=== PATIENT | male | born 1950 | race Caucasian/White ===

== ENCOUNTER 2024-01-06 15:07 | Emergency (ER) | payer MEDICARE, OTHER ==
[~2024-01-06] VITALS: Ht 170.2 cm; Wt 64.0 kg
[2024-01-06] MEDS ORDERED: TDAP [DIPH/PERTUSSIS/TET] 0.5 ML VIAL IM ONE (15:30)
[2024-01-06] MEDS: TDAP [DIPH/PERTUSSIS/TET] 0.5 ML VIAL IM ONE (15:31)
[2024-01-06] MEDS ORDERED: IBUP-1953 PO (16:26)
[2024-01-06] MEDS ORDERED: ACETAMINOPHEN ES 500 MG TABLET ONE (17:03)
[2024-01-06] MEDS: ACETAMINOPHEN ES 500 MG TABLET PO ONE (17:07)
[2024-01-06 17:19] VITALS: BP 128/77; TEMP 98.4; O2SAT 100
== END 2024-01-06 17:20 | disposition home or self-care (01) ==
LOC: ER 15:20
DX: S53.401A Unspecified sprain of right elbow, initial encounter (principal); S43.401A Unspecified sprain of right shoulder joint, initial encounter; S80.01XA Contusion of right knee, initial encounter; S00.83XA Contusion of other part of head, initial encounter; S00.81XA Abrasion of other part of head, initial encounter; F31.9 Bipolar disorder, unspecified; E03.9 Hypothyroidism, unspecified; X50.1XXA Overexertion from prolonged static or awkward postures, initial encounter; Y93.89 Activity, other specified; Y92.89 Other specified places as the place of occurrence of the external cause; Y99.8 Other external cause status
CPT/HCPCS: 70450-TC; 70486-TC; 73030-TC; 73080-TC; 90715

== ENCOUNTER 2024-07-10 09:53 | Inpatient (IN) | payer OTHER ==
[~2024-07-10] VITALS: Ht 165.1 cm; Wt 68.5 kg
[~2024-07-10 09:53] MED LIST: IBUP-1953 PO
[2024-07-10 10:24] LABS: BASOPHILS % (AUTO) 0.3 % (0.0-2.0); HEMATOCRIT 41 % (39-51); HEMOGLOBIN 13.5 g/dL (13.5-17.5); LYMPHOCYTES # (AUTO) 0.3 K/uL (0.8-4.8); LYMPHOCYTES % (AUTO) 2.5 % (20.0-44.0); MEAN CORPUSCULAR HEMOGLOBIN 30 PG (26.0-33.0); MEAN CORPUSCULAR HGB CONC 33 g/dl (31.0-36.0); MEAN CORPUSCULAR VOLUME 90 fL (80-96); NEUTROPHILS # (AUTO) 10.2 K/uL (1.8-8.9); NEUTROPHILS % (AUTO) 88.2 % (43.0-81.0); PLATELET COUNT (AUTO) 208 K/uL (150-450); RED BLOOD CELL COUNT(AUTO) 4.57 MIL/uL (4.5-6.0); RED CELL DISTRIBUTION WIDTH 14.2 % (11.5-15.0); WHITE BLOOD COUNT (AUTO) 11.5 K/uL (4.3-11.0)
[2024-07-10 10:38] LABS: INR 1.09 (0.91-1.10); PARTIAL THROMBOPLASTIN TIME 29.6 SEC (24.3-34.3); PROTHROMBIN TIME 11.5 SECS (9.2-11.1)
[2024-07-10 10:55] LABS: LYMPHOCYTES % (MANUAL) 5 % (16-48); MONOCYTES % (MANUAL) 9 % (0-11.0); NEUTROPHILS % (MANUAL) 86 (42-76); PLATELET ESTIMATE ADEQUATE
[2024-07-10 11:00] LABS: CALCIUM, SERUM 9.4 mg/dL (8.5-10.1); CREATININE 1.4 mg/dL (0.6-1.3); POTASSIUM 4.2 mmol/L (3.5-5.1)
[2024-07-10] MEDS ORDERED: TAMS-12 PO (11:05)
[2024-07-10] MEDS ORDERED: HONE44PA TP (11:05)
[2024-07-10] MEDS ORDERED: TRAZ150T75 PO (11:05)
[2024-07-10] MEDS ORDERED: ATOR10TA PO (11:05)
[2024-07-10] MEDS ORDERED: FLUP5TAB14 PO ×2 (11:05)
[2024-07-10] MEDS ORDERED: LOPE2TAB25 PO (11:05)
[2024-07-10] MEDS ORDERED: FINA5TAB11 PO (11:05)
[2024-07-10] MEDS ORDERED: LAMO100T17 PO (11:05)
[2024-07-10] MEDS ORDERED: HALO15CR2 TP (11:05)
[2024-07-10] MEDS ORDERED: LOSA50TA39 PO (11:05)
[2024-07-10] MEDS ORDERED: LAMO150T6 PO (11:05)
[2024-07-10] MEDS ORDERED: SERT100T PO (11:05)
[2024-07-10] MEDS ORDERED: ACET325T53 PO (11:05)
[2024-07-10] MEDS ORDERED: MUPI15CR TP (11:05)
[2024-07-10] MEDS ORDERED: LEVO137T24 PO (11:05)
[2024-07-10] MEDS ORDERED: MAGN400O6 PO (11:05)
[2024-07-10] MEDS ORDERED: MAG-135 PO (11:05)
[2024-07-10] MEDS ORDERED: DOCU100T2 PO (11:05)
[2024-07-10] MEDS ORDERED: LORA-258 PO (11:05)
[2024-07-10] MEDS ORDERED: NALT50TA PO (11:05)
[2024-07-10] MEDS ORDERED: NYST15PO3 TP (11:05)
[2024-07-10] MEDS ORDERED: MIRT-91 PO (11:05)
[2024-07-10] MEDS ORDERED: BISA10SU11 RC (11:05)
[2024-07-10] MEDS ORDERED: MORPHINE SULFATE INJ 4 MG/ML DISP.SYRIN ONE (12:54)
[2024-07-10] MEDS ORDERED: ONDANSETRON HCL/PF 4 MG/2 ML VIAL ONE (12:54)
[2024-07-10] MEDS: ONDANSETRON HCL/PF 4 MG/2 ML VIAL IV ONE (13:00)
[2024-07-10] MEDS: MORPHINE SULFATE INJ 2 MG/ML DISP.SYRIN IV ONE (13:00)
[2024-07-10] MEDS ORDERED: BISACODYL SUPP (10 MG) 10 MG/SUPP.RECT SUPP.RECT RC PRN (13:30)
[2024-07-10] MEDS ORDERED: LamoTRIgine 100 MG TABLET PO SCH (13:30)
[2024-07-10] MEDS: LEVOTHYROXINE SODIUM 137 MCG TABLET PO SCH (13:30)
[2024-07-10] MEDS ORDERED: ACETAMINOPHEN 325 MG TABLET PO PRN ×2 (13:30→15:30)
[2024-07-10] MEDS ORDERED: ONDANSETRON HCL/PF 4 MG/2 ML VIAL IVP PRN (15:30)
[2024-07-10] MEDS ORDERED: MAGNESIUM HYDROXIDE 30 ML UDC PO PRN (15:30)
[2024-07-10] MEDS: MORPHINE SULFATE INJ 4 MG/ML DISP.SYRIN IV PRN (16:11)
[2024-07-10] MEDS: LamoTRIgine 100 MG TABLET PO SCH (17:00)
[2024-07-10 18:00] VITALS: BP 135/87; TEMP 98.6; O2SAT 95
[2024-07-10] MEDS: LamoTRIgine 25 MG TABLET PO SCH (18:07)
[2024-07-10] MEDS: LOSARTAN POTASSIUM 50 MG TABLET PO SCH (18:07)
[2024-07-10 20:00] VITALS: BP 118/83; TEMP 98.1; O2SAT 92
[2024-07-10] MEDS: TRAZODONE 50 MG TABLET PO SCH (21:59)
[2024-07-10] MEDS: FINASTERIDE (5 MG) 5 MG TABLET PO SCH (21:59)
[2024-07-10] MEDS: ATORVASTATIN 10 MG TABLET PO SCH (22:00)
[2024-07-10] MEDS: TAMSULOSIN 0.4 MG CAP.SR.24H PO SCH (22:00)
[2024-07-10] MEDS: FLUPHENAZINE HCL 10 MG TABLET PO SCH (22:01)
[2024-07-10] MEDS: HYDROCODONE/APAP 10/325MG TABLET PO PRN (22:20)
[2024-07-10] MEDS: IV 1/2NS 1000 ML 1,000 ML IV PRN (22:35)
[2024-07-11] VITALS (8 sets, daily range): BP systolic 99–115; BP diastolic 65–71; TEMP 97–98.1; O2SAT 90–96
[2024-07-11 07:01] LABS: ALBUMIN 3.4 g/dL (3.4-5.0); BILIRUBIN,TOTAL 0.3 mg/dL (0.2-1.0); CALCIUM, SERUM 9.8 mg/dL (8.5-10.1); CREATININE 1.3 mg/dL (0.6-1.3); MAGNESIUM 2.3 mg/dL (1.8-2.4); PHOSPHORUS 3.1 mg/dL (2.5-4.9); POTASSIUM 4.3 mmol/L (3.5-5.1); TOTAL PROTEIN, SERUM 6.6 g/dL (6.4-8.2)
[2024-07-11 07:11] LABS: THYROID STIMULATING HORMONE 6.94 uIU/mL (0.358-3.74)
[2024-07-11 07:38] LABS: BASOPHILS % (AUTO) 0.1 % (0.0-2.0); EOSINOPHILS % (AUTO) 0.1 % (0.0-6.0); HEMATOCRIT 39 % (39-51); HEMOGLOBIN 13.4 g/dL (13.5-17.5); LYMPHOCYTES # (AUTO) 0.8 K/uL (0.8-4.8); LYMPHOCYTES % (AUTO) 9.6 % (20.0-44.0); MEAN CORPUSCULAR HEMOGLOBIN 30 PG (26.0-33.0); MEAN CORPUSCULAR HGB CONC 34 g/dl (31.0-36.0); MEAN CORPUSCULAR VOLUME 89 fL (80-96); MONOCYTES # (AUTO) 1.2 K/uL (0.1-1.30); MONOCYTES % (AUTO) 14.5 % (2.0-12.0); NEUTROPHILS # (AUTO) 6.1 K/uL (1.8-8.9); NEUTROPHILS % (AUTO) 75.7 % (43.0-81.0); PLATELET COUNT (AUTO) 191 K/uL (150-450); RED BLOOD CELL COUNT(AUTO) 4.43 MIL/uL (4.5-6.0); RED CELL DISTRIBUTION WIDTH 14.1 % (11.5-15.0)
[2024-07-11] MEDS: SERTRALINE HCL 50 MG TABLET PO SCH (09:00)
[2024-07-11] MEDS: FLUPHENAZINE HCL 10 MG TABLET PO SCH (09:00)
[2024-07-11] MEDS ORDERED: ANESTHESIA TRAY IN PYXIS 1 EA TRAY MC ONE (12:00)
[2024-07-11] MEDS ORDERED: BUPIVACAINE 0.25% 75 MG/30 ML VIAL ONE (12:00)
[2024-07-11] MEDS ORDERED: FENTANYL PF 250MCG/5ML AMPUL ONE (12:54)
[2024-07-11] MEDS ORDERED: ROCURONIUM BROMIDE 50 MG/5 ML ONE (12:56)
[2024-07-11] MEDS ORDERED: SEVOFLURANE 250 ML BOTTLE IH ONE (13:17)
[2024-07-11] MEDS ORDERED: TRANEXAMIC ACID 1,000 MG/10 ML VIAL ONE (13:29)
[2024-07-11] MEDS: CEFAZOLIN 2 GM in IV D5W 100 ML IV SCH (20:44)
[2024-07-12 06:31] LABS: BASOPHILS % (AUTO) 0.3 % (0.0-2.0); HEMATOCRIT 37 % (39-51); HEMOGLOBIN 12.4 g/dL (13.5-17.5); LYMPHOCYTES # (AUTO) 0.5 K/uL (0.8-4.8); LYMPHOCYTES % (AUTO) 5.8 % (20.0-44.0); MEAN CORPUSCULAR HEMOGLOBIN 30 PG (26.0-33.0); MEAN CORPUSCULAR HGB CONC 34 g/dl (31.0-36.0); MEAN CORPUSCULAR VOLUME 89 fL (80-96); MONOCYTES # (AUTO) 0.7 K/uL (0.1-1.30); MONOCYTES % (AUTO) 7.7 % (2.0-12.0); NEUTROPHILS # (AUTO) 7.4 K/uL (1.8-8.9); NEUTROPHILS % (AUTO) 86.2 % (43.0-81.0); PLATELET COUNT (AUTO) 196 K/uL (150-450); RED BLOOD CELL COUNT(AUTO) 4.11 MIL/uL (4.5-6.0); RED CELL DISTRIBUTION WIDTH 14.3 % (11.5-15.0); WHITE BLOOD COUNT (AUTO) 8.5 K/uL (4.3-11.0)
[2024-07-12 06:44] LABS: BILIRUBIN,TOTAL 0.3 mg/dL (0.2-1.0); CALCIUM, SERUM 9.1 mg/dL (8.5-10.1); CREATININE 1.5 mg/dL (0.6-1.3); MAGNESIUM 2.1 mg/dL (1.8-2.4); PHOSPHORUS 3.2 mg/dL (2.5-4.9); POTASSIUM 4.6 mmol/L (3.5-5.1); TOTAL PROTEIN, SERUM 6.1 g/dL (6.4-8.2)
[2024-07-12 06:57] LABS: CREATININE, URINE 88.8 MG/DL (30.0-125.0); URINE TOTAL PROTEIN 60.9 mg/dL (0-11.9)
[2024-07-12 07:01] LABS: APPEARANCE,URINE SLIGHTLY CLOUDY (CLEAR); BILIRUBIN,URINE NEGATIVE (NEGATIVE); BLOOD, URINE 1+ Ery/uL (NEGATIVE); COLOR,URINE YELLOW (YELLOW); KETONES,URINE NEGATIVE (NEGATIVE); LEUKOCYTE ESTERASE ,URINE 3+ (NEGATIVE); NITRITE, URINE POSITIVE (NEGATIVE); PROTEIN,URINE TRACE mg/dl (NEGATIVE); UGLUCOSE NEGATIVE (NEGATIVE); UROBILINOGEN,URINE 0.2 EU/dL (0.2)
[2024-07-12 08:00] VITALS: BP 110/74; TEMP 99.1; O2SAT 93
[2024-07-12 08:11] LABS: ADD URINE CULTURE YES; BACTERIA,URINE Few /HPF (None Seen); EOSINOPHIL,URINE None Seen; SQUAMOUS EPITHELIAL CELL,UR Few /HPF (None Seen); WBC,URINE 51-80 /HPF (0-3)
[2024-07-12] MEDS: CEFTRIAXONE 1 G in IV D5W 50 ML IV SCH (15:41)
[2024-07-12] MEDS: ENOXAPARIN SODIUM 40 MG/0.4 ML DISP.SYRIN SQ SCH (15:42)
[2024-07-12 16:00] VITALS: BP 110/66; TEMP 97.8; O2SAT 94
[2024-07-12 20:00] VITALS: BP 122/74; TEMP 98.2; O2SAT 94
[2024-07-13 08:00] VITALS: BP 120/76; TEMP 98.4; O2SAT 95
[2024-07-13 16:00] VITALS: BP 125/76; TEMP 97.3; O2SAT 97
[2024-07-13 20:00] VITALS: BP 114/61; TEMP 98.6; O2SAT 93
[2024-07-14 08:00] VITALS: BP 123/79; TEMP 97.9; O2SAT 94
[2024-07-14 11:33] LABS: BASOPHILS % (AUTO) 0.3 % (0.0-2.0); EOSINOPHILS % (AUTO) 0.3 % (0.0-6.0); HEMATOCRIT 31 % (39-51); HEMOGLOBIN 10.5 g/dL (13.5-17.5); LYMPHOCYTES # (AUTO) 0.8 K/uL (0.8-4.8); LYMPHOCYTES % (AUTO) 9.5 % (20.0-44.0); MEAN CORPUSCULAR HEMOGLOBIN 30 PG (26.0-33.0); MEAN CORPUSCULAR HGB CONC 34 g/dl (31.0-36.0); MEAN CORPUSCULAR VOLUME 89 fL (80-96); MONOCYTES # (AUTO) 1.1 K/uL (0.1-1.30); NEUTROPHILS # (AUTO) 6.4 K/uL (1.8-8.9); NEUTROPHILS % (AUTO) 76.9 % (43.0-81.0); PLATELET COUNT (AUTO) 238 K/uL (150-450); RED CELL DISTRIBUTION WIDTH 14.2 % (11.5-15.0); WHITE BLOOD COUNT (AUTO) 8.3 K/uL (4.3-11.0)
[2024-07-14 11:50] LABS: CALCIUM, SERUM 9.1 mg/dL (8.5-10.1); CREATININE 1.1 mg/dL (0.6-1.3); MAGNESIUM 2.1 mg/dL (1.8-2.4); PHOSPHORUS 2.9 mg/dL (2.5-4.9); POTASSIUM 4.2 mmol/L (3.5-5.1)
[2024-07-14 16:00] VITALS: BP 114/75; TEMP 97.9; O2SAT 97
[2024-07-14 20:00] VITALS: BP 116/66; TEMP 97.7; O2SAT 95
[2024-07-15 00:07] LABS: PTH, INTACT 78 pg/mL (15-65)
[2024-07-15 05:07] LABS: *SPE ALBUMIN 2.7 g/dL (2.9-4.4); *SPE ALPHA-1-GLOBULIN 0.3 g/dL (0.0-0.4); *SPE ALPHA-2-GLOBULIN 0.8 g/dL (0.4-1.0); *SPE BETA GLOBULIN 0.9 g/dL (0.7-1.3); *SPE GLOBULIN, TOTAL 2.6 g/dL (2.2-3.9); *SPE M-SPIKE Not Observed g/dL (Not Observed); *SPE PROTEIN TOTAL 5.3 g/dL (6.0-8.5); *SPEGAMMA GLOBULIN 0.7 g/dL (0.4-1.8)
[2024-07-15 07:00] VITALS: BP 119/66; TEMP 98.1; O2SAT 100
[2024-07-15 08:09] LABS: BASOPHILS % (AUTO) 0.3 % (0.0-2.0); EOSINOPHILS # (AUTO) 0.1 K/uL (0.0-0.7); HEMATOCRIT 31 % (39-51); HEMOGLOBIN 10.4 g/dL (13.5-17.5); LYMPHOCYTES # (AUTO) 0.9 K/uL (0.8-4.8); MEAN CORPUSCULAR HEMOGLOBIN 30 PG (26.0-33.0); MEAN CORPUSCULAR HGB CONC 34 g/dl (31.0-36.0); MEAN CORPUSCULAR VOLUME 89 fL (80-96); MONOCYTES % (AUTO) 11.2 % (2.0-12.0); NEUTROPHILS # (AUTO) 6.6 K/uL (1.8-8.9); NEUTROPHILS % (AUTO) 77.5 % (43.0-81.0); PLATELET COUNT (AUTO) 272 K/uL (150-450); RED BLOOD CELL COUNT(AUTO) 3.44 MIL/uL (4.5-6.0); RED CELL DISTRIBUTION WIDTH 14.4 % (11.5-15.0); WHITE BLOOD COUNT (AUTO) 8.5 K/uL (4.3-11.0)
[2024-07-15 08:59] LABS: LDL 57 mg/dL (0-99)
[2024-07-15 09:00] VITALS: BP 103/69
[2024-07-15 09:00] LABS: CHOLESTEROL 119 mg/dL (<200); HDL CHOLESTEROL 46 mg/dL (40-60); TRIGLYCERIDES 69 mg/dL (30-150)
[2024-07-15 09:01] LABS: CALCIUM, SERUM 9.4 mg/dL (8.5-10.1); CREATININE 1.1 mg/dL (0.6-1.3); MAGNESIUM 2.2 mg/dL (1.8-2.4); PHOSPHORUS 2.7 mg/dL (2.5-4.9); POTASSIUM 4.3 mmol/L (3.5-5.1)
[2024-07-15] MEDS ORDERED: CEFT1FRO2 IV (13:40)
[2024-07-15] MEDS ORDERED: ENOX40DI SQ (13:40)
[2024-07-15] MEDS ORDERED: HYDR-3980 PO (13:40)
== END 2024-07-15 15:50 | DRG 481 ==
LOC: ER 09:55 → MED 14:19
PROVIDERS: ADMIT Nurse Practitioner Family; ATTEND Student in an Organized Health Care Education/Training Program
PROC: 0QS706Z Reposition Left Upper Femur with Intramedullary Internal Fixation Device, Open Approach (ICD-10-PCS; principal; 2024-07-11)
DX: S72.142A Displaced intertrochanteric fracture of left femur, initial encounter for closed fracture (principal); N17.9 Acute kidney failure, unspecified; N39.0 Urinary tract infection, site not specified; N18.9 Chronic kidney disease, unspecified; I12.9 Hypertensive chronic kidney disease with stage 1 through stage 4 chronic kidney disease, or unspecified chronic kidney disease; E03.9 Hypothyroidism, unspecified; N40.0 Benign prostatic hyperplasia without lower urinary tract symptoms; K59.00 Constipation, unspecified; K40.90 Unilateral inguinal hernia, without obstruction or gangrene, not specified as recurrent; W01.0XXA Fall on same level from slipping, tripping and stumbling without subsequent striking against object, initial encounter; F31.9 Bipolar disorder, unspecified; M89.8X9 Other specified disorders of bone, unspecified site; Z79.890 Hormone replacement therapy; Z79.899 Other long term (current) drug therapy; Z82.49 Family history of ischemic heart disease and other diseases of the circulatory system; Z87.891 Personal history of nicotine dependence; D64.9 Anemia, unspecified; R73.9 Hyperglycemia, unspecified; B96.89 Other specified bacterial agents as the cause of diseases classified elsewhere; Y92.092 Bedroom in other non-institutional residence as the place of occurrence of the external cause
CPT/HCPCS: 36415; 71045-TC; 72170-TC; 72192-TC; 73502; 73552; 76770-TC; 80048-TC; 80053-TC; 80061-TC; 81001; 82550-TC; 82553; 82570-TC; 83735-TC; 83970; 84100-TC; 84155; 84165; 84300-TC; 84443-TC; 85025-TC; 85730-TC; 86850-TC; 87081-TC; 87086-TC; 93307-TC; 97110-TC; 97112-TC; 97530-TC; 97535-TC; A4223; A6209; A6253; C1713; G0378; J0461; J0690; J0696; J1650; J1885; J2270; J2405; J2704; J3010; J3490; J7030; J7060